=== PATIENT | male | born 1950 | race Caucasian/White ===

== ENCOUNTER 2018-01-14 21:11 | Day surgery (SDC) | payer OTHER ==
[2018-01-14] MEDS ORDERED: NITROGLYCERIN 0.4 MG BTL SL PRN (21:35)
--- NOTE | 2018-01-14 21:36 | EDPHY ---
H & P Time Seen by Provider: 01/14/18 21:32 HPI/ROS: CHIEF COMPLAINT: Pot roast stuck in the throat HISTORY OF PRESENT ILLNESS: Patient is had feeling of foreign body stuck in his throat once or twice in the past but never had to have endoscopy. It is a pot roast at 1:00 p.m.. Tried carbonated beverage but can't get anything down including his own saliva. Presents with feeling of pot roast stuck just below his sternal notch in his esophagus. Not associated with vomiting or cough or trouble breathing or difficulty with his voice. REVIEW OF SYSTEMS: Eye: no change in vision ENT: no sore throat Cardiac: no chest pain or syncope Pulmonary: no cough or SOB Abdomen: no vomiting, diarrhea, abdominal pain Musculoskeletal: no back pain Skin: no rash Neuro: no headache Constitutional: no fever : no urinary symptoms A comprehensive 10 point review of systems is otherwise negative aside from elements mentioned in the history of present illness. 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 Eyes: No scleral icterus. ENT, Mouth: Normal mucous membranes. Normal pharynx with no angioedema. No drooling or stridor. Respiratory: Normal respiratory effort, breath sounds equal, lungs are clear to auscultation. Cardiovascular: Regular rate and rhythm. Gastrointestinal: Abdomen is soft and non tender. Neurological: Alert, face symmetric, normal motor and sensory in extremities. Skin: Warm and dry, no rashes. Musculoskeletal: No peripheral edema Psychiatric:Not agitated Emergency Department course/MDM: Trial of sublingual nitroglycerin. GI consultation with endoscopy if does not succeed. 2202: No change with sublingual nitroglycerin and carbonated beverage, gastroenterology paged 2206: [place], will take to endoscopy tonight. Smoking Status: Never smoked Constitutional: Initial Vital Signs Temperature (C) 36.8 C 01/14/18 21:22 Heart Rate 86 01/14/18 21:22 Respiratory Rate 16 01/14/18 21:22 Blood Pressure 160/103 H 01/14/18 21:22 O2 Sat (%) 96 01/14/18 21:22 O2 Delivery Mode Room Air Allergies/Adverse Reactions: No Known Allergies Allergy (Unverified 01/14/18 21:20) Home Medications: Medication Instructions Recorded Adderall 10 MG (*) 01/14/18 Effexor Xr 01/14/18 Gabapentin 01/14/18 Guafesin 01/14/18 Medical Decision Making Differential Diagnosis: Differential considered including but not limited to pill esophagitis, esophageal food impaction, esophageal stricture, Boerhaaves - Data Points Medications Given: Nitroglycerin (Nitrostat) 0.4 mg SL Q5M PRN PRN Reason: Chest Pain Last Admin: 01/14/18 21:39 Dose: 0.4 mg Departure - Departure Disposition: To OP Cath/Surgery Clinical Impression: Foreign body in esophagus Qualifiers: Encounter type: initial encounter Qualified Code(s): T18.108A - Unspecified foreign body in esophagus causing other injury, initial encounter Condition: Good Referrals: GLADIS RODRIGUEZ [Primary Care Provider] - As per Instructions
[2018-01-14] MEDS ORDERED: PROPOFOL/EMULSION 500 MG/50 ML BOTTLE IV ONE (23:01)
[2018-01-14] MEDS ORDERED: LIDOCAINE 2% 5 ML SDV ONE (23:03)
[2018-01-14] MEDS ORDERED: ONDANSETRON 4 MG/2 ML VIAL IVP PRN (23:19)
[2018-01-14] MEDS ORDERED: LR 500 ML IV PRN (23:19)
[2018-01-14] MEDS ORDERED: NALOXONE HCL 0.4 MG/ML INJ IVP PRN (23:19)
--- NOTE | 2018-01-14 23:19 | GIREPORT ---
[facility] - Endoscopy Department Patient Name: Sincere Zarco Procedure Date: 01/14/2018 11:05 PM Patient Type: Outpatient Attending MD/ ER Physician: Trent Palacios MD Procedure: Upper GI endoscopy Indications: Dysphagia, Foreign body in the esophagus Providers: Trent Palacios MD Medicines: See the Anesthesia note for documentation of the administered medicatio ns Complications: No immediate complications. Description of Procedure: After obtaining informed consent, the endoscope was passed under direct vision. Throughout the procedure, the patient's blood pressure, pulse, and oxygen saturations were monitored continuously. The Endoscope was intro duced through the mouth, and advanced to the second part of duodenum. The [facility] GI endoscopy was accomplished without difficulty. The patient tolerated th e procedure well. Findings: Food was found at the gastroesophageal junction. Removal of food was accomplished. Food bolus was grabbed with Mello net. Food bolus was push ed into the stomach. One mild benign-appearing, intrinsic stenosis was found 36 cm from the incisors. The entire examined stomach was normal. The examined duodenum was normal. Estimated Blood Loss: Estimated blood loss: none. Post Op Diagnosis: - Food at the gastroesophageal junction. Removal was successful. - Benign-appearing esophageal stenosis. - Normal stomach. - Normal examined duodenum. Recommendation: - Discharge patient to home. - Advance diet as tolerated. - Continue present medications. - Return to GI office PRN. - Thank you for allowing me to participate in the care of your patient. Attending Participation: I personally performed the entire procedure. Trent Palacios MD Trent Palacios MD 01/14/2018 11:19:39 PM This report has been signed electronicallyStduong Palacios MD Number of Addenda: 0 Note Initiated On: 01/14/2018 11:05 PM [email or web address]
--- NOTE | 2018-01-14 23:21 | PDANEPAE ---
ANE History of Present Illness Patient presents for EGD and foreign body extraction of distal esophagus ANE Past Medical History - Pulmonary History Hx Oxygen in Use at Home: No - Endocrine History Hx Diabetes: No - Neurological & Psychiatric Hx Hx Neurological and Psychiatric Disorders: Yes ANE Review of Systems Review of Systems: ANE Patient History - Allergies Allergies/Adverse Reactions: No Known Allergies Allergy (Unverified 01/14/18 21:20) - Home Medications Home medications: home medication list seen and reviewed Home Medications: Adderall 10 MG (*) 01/14/18 [Last Taken Unknown] Effexor Xr 01/14/18 [Last Taken Unknown] Gabapentin 01/14/18 [Last Taken Unknown] Guafesin 01/14/18 [Last Taken Unknown] - NPO status NPO Status: no food or drink >8 hours NPO Since - Liquids (Date): 01/14/18 NPO Since - Liquids (Time): 13:00 NPO Since - Solids (Date): 01/14/18 NPO Since - Solids (Time): 13:00 - Anes Hx Anes Hx: no prior problems - Smoking Hx Smoking Status: Never smoked ANE Labs/Vital Signs - Vital Signs Blood Pressure: 163/99 Heart Rate: 87 Respiratory Rate: 16 O2 Sat (%): 98 Height: 165.1 cm Weight: 79.379 kg ANE Physical Exam - Airway Neck exam: FROM Mallampati Score: Class 2 Mouth exam: normal dental/mouth exam - Pulmonary Pulmonary: no respiratory distress - Cardiovascular Cardiovascular: regular rate and rhythym - ASA Status ASA Status: II, E ANE Anesthesia Plan Anesthesia Plan: GA with mask (RBA discussed)
--- NOTE | 2018-01-14 23:36 | GCON ---
[f rep st] CONSULTATION CHIEF COMPLAINT: Foreign body esophagus, dysphagia. HISTORY OF PRESENT ILLNESS: I have been asked to see this very pleasant 67-year-old gentleman in [facility] by Dr. Lanier for evaluation of acute dysphagia and food impaction. This gentleman does not have a history of significant reflux. He does not have any significant problems with persistent dysp hagia. He has had 1 previous episode of food bolus in the esophagus. It did pass spontaneously afte r 3-5 minutes. At 1 o'clock this afternoon, he had been eating lunch, and he ate pot roast. He felt some of the food get stuck. All afternoon he felt as though he was able to pass the food bolus and swallow. However, symptoms did become progressively worse when he was not able to swallow saliva. H kelsey has no nausea or vomiting. He has some slight chest discomfort and fullness. Patient presented to the emergency room with persistent symptoms of foreign body sensation in the esophagus. He has no o ther significant medical problems. Denies any prior history of asthma or allergies. PAST MEDICAL HISTORY: Remarkable for ADHD, anxiety. PAST SURGICAL HISTORY: Remarkable for tonsillectomy and adenoidectomy. ALLERGIES: No known drug allergies. MEDICATIONS: Adderall. FAMILY HISTORY: Negative as it pertains to HPI. SOCIAL HISTORY: Nonsmoker. Drinks occasional alcohol. 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 REVIEW OF SYSTEMS: Negative 10 systems other than mentioned in the HPI. PHYSICAL EXAMINATION: VITAL SIGNS: 160/103, heart rate of 86, 16%, 96% sat, 36.8. GENERAL: Very p leasant gentleman, in no acute distress. HEENT: Normocephalic, atraumatic. EOMI. Mucous membranes moist. NECK: Supple. LUNGS: No crepitus. Lungs clear. CARDIAC: Normal S1, S2 without murmur. ABDOMEN: Benign. No hepatosplenomegaly. EXTREMITIES: Without clubbing, cyanosis, or edema. NEUR O: Nonfocal. SKIN: Warm, dry, intact. PSYCH: Alert and oriented x3 with normal affect. IMPRESSION: A 67-year-old gentleman with food bolus and meat impaction. RECOMMENDATIONS: Proceed with urgent endoscopy with Anesthesia assistance. Patient to be intubated to protect the airway. /[id number]/MODL
--- NOTE | 2018-01-14 23:47 | POSTANESTH ---
Post Anesthetic Evaluation Cardiovascular Status: Similar to Pre-Op Cond Respiratory Status: Similar to Pre-op Cond. Level of Consciousness/Mental Status: Alert and Oriented Pain Control: Adequate, Prn Tx Ordered Nausea/Vomiting Control: Adequate, Prn Tx Ordered Complications Possibly Related to Anesthesia: None Noted
[2018-01-15 00:16] VITALS: TEMP 98.4; O2SAT 96
[2018-01-15 00:26] VITALS: BP 141/84; PULSE 80; RESP 16
== END 2018-01-15 00:25 | disposition home or self-care (01) ==
LOC: FSGY 23:09
PROVIDERS: ATTEND Internal Medicine Gastroenterology
PROC: 0DJ08ZZ Inspection of Upper Intestinal Tract, Via Natural or Artificial Opening Endoscopic (ICD-10-PCS; principal; 2018-01-14 22:56)
DX: T18.128A Food in esophagus causing other injury, initial encounter (principal); R13.10 Dysphagia, unspecified; F90.9 Attention-deficit hyperactivity disorder, unspecified type; F41.9 Anxiety disorder, unspecified
CPT/HCPCS: J2704

== ENCOUNTER → 2018-08-28 | Outpatient (CLI) | payer OTHER | LOC: FIMAGING 10:23 | PROVIDERS: ATTEND Family Medicine | DX: R41.3 Other amnesia (principal); R51 Headache; R93.8 Abnormal findings on diagnostic imaging of other specified body structures ==

== ENCOUNTER → 2019-04-12 | Outpatient (CLI) | payer OTHER | LOC: BHFA 14:45 | PROVIDERS: ATTEND Internal Medicine Interventional Cardiology | DX: R06.02 Shortness of breath (principal) ==